=== PATIENT | female | born 1995 | race Caucasian/White ===

== ENCOUNTER 2018-03-21 02:00 | Emergency (ER) | payer OTHER ==
[~2018-03-21] VITALS: Ht 157.5 cm; Wt 92.5 kg
[~2018-03-21 02:00] MED LIST: BENADRYL25 MG PO; ZYRTEC10 M3 PO
== END 2018-03-21 09:14 | disposition home or self-care (01) ==
LOC: ER 02:00
DX: N21.1 Calculus in urethra (principal)

== ENCOUNTER 2019-02-13 11:45 | Emergency (ER) | payer OTHER ==
[~2019-02-13] VITALS: Ht 154.9 cm; Wt 95.3 kg
== END 2019-02-13 12:59 | disposition home or self-care (01) ==
LOC: ER 11:45
DX: R04.0 Epistaxis (principal)

== ENCOUNTER → 2019-10-10 | Emergency (ER) | payer OTHER ==
[~2019-10-10] VITALS: Ht 157.5 cm; Wt 93.9 kg
== END | disposition home or self-care (01) ==
LOC: ER 22:19
DX: L50.0 Allergic urticaria (principal)

== ENCOUNTER 2022-09-28 19:51 | Emergency (ER) | payer OTHER ==
[~2022-09-28] VITALS: Ht 157.5 cm; Wt 90.7 kg
== END 2022-09-29 01:20 | disposition home or self-care (01) ==
LOC: ER 19:51
DX: K52.9 Noninfective gastroenteritis and colitis, unspecified (principal)

== ENCOUNTER 2023-03-05 17:14 | Inpatient (IN) | payer OTHER ==
[~2023-03-05] VITALS: Ht 157.5 cm; Wt 89.4 kg
--- NOTE | 2023-03-05 17:27 | NUR ---
PACIENTE ALERTA Y ORIENTADA X3, REFIERE TENER DOLOR ABDOMINAL ,VOMITOS X2 Y NAUSEAS. SE MONITOREAN VS Y SE UBICA
--- NOTE | 2023-03-05 18:01 | NUR ---
SE EDUCA A PTE SOBRE TX MEDICO ESTA REFIERE ENTENDER, SE DANNY MUESTRAS DE LABORATORIO UTILIZANDO MEDIDAS ASEPTICA.S SE COLOCAN MEDICAMENTOS LOS CUALES TOLERA.
--- NOTE | 2023-03-05 23:53 | NUR ---
PACIENTE ALERTA Y OR IENTADA X3. SE ORIENTA SOBRE PROCEDIMIENTO A REALIZAR Y REFIRIO ENTENDER. SE REALIZA MUESTRAS DE LABORATORIO BAJO MEDIDAS ASEPTICAS. SE REALIZA EKG ORDENADO POR . SE MANTIENE BAJO OBSERVACION POR CAMBIOS SIGNIFICATIVOS EN JOE CON BARANDAS ELEVADAS.
--- NOTE | 2023-03-06 00:19 | NUR ---
PACIENTE ALERTA Y ORIENTADA X3. SE ORIENTA SOBRE TX A RECIBIR Y REFIRIO ENTENDER. SE ADMINISTRA MEDICAMENTO ORDENADO POR MD. SE CANALIZA EN MANO IZQUIERDA BAJO MEDIDAS ASEPTICAS.
== END 2023-03-09 20:37 | disposition home or self-care (01) | DRG 419 ==
LOC: ER 17:14 → SURG 03-06 01:07
PROVIDERS: Surgery; ADMIT Internal Medicine; ATTEND Internal Medicine
PROC: BW20ZZZ Computerized Tomography (CT Scan) of Abdomen (ICD-10-PCS; 2023-03-06)
PROC: [UNRECOGNIZED PROCEDURE] (2023-03-06)
PROC: BF53200 Other Imaging of Gallbladder and Bile Ducts using Fluorescing Agent, Indocyanine Green Dye, Intraoperative (ICD-10-PCS; 2023-03-08)
PROC: 0FT44ZZ Resection of Gallbladder, Percutaneous Endoscopic Approach (ICD-10-PCS; principal; 2023-03-08 09:00)
DX: K80.20 Calculus of gallbladder without cholecystitis without obstruction (principal); E80.6 Other disorders of bilirubin metabolism; K80.01 Calculus of gallbladder with acute cholecystitis with obstruction

== ENCOUNTER 2023-08-17 13:48 | Emergency (ER) | payer OTHER ==
[~2023-08-17] VITALS: Ht 157.5 cm; Wt 88.0 kg
[2023-08-17] MEDS ORDERED: DICLOFENAC SODI75 MG PO (15:21)
[2023-08-17] MEDS ORDERED: PEPCID AC20 MG PO (15:21)
== END 2023-08-17 15:27 | disposition home or self-care (01) ==
LOC: ER 13:48
DX: M94.0 Chondrocostal junction syndrome [Tietze] (principal); Z91.013 Allergy to seafood; Z88.2 Allergy status to sulfonamides

== ENCOUNTER 2023-11-01 08:22 | Emergency (ER) | payer OTHER ==
[~2023-11-01] VITALS: Ht 157.5 cm; Wt 88.0 kg
[~2023-11-01 08:22] MED LIST changes: +DICLOFENAC SODI75 MG PO; +PEPCID AC20 MG PO
[2023-11-01] MEDS ORDERED: KETOROLAC TROMETHAMINE 60 MG VIAL IM ONE (09:45)
[2023-11-01 09:57] LABS: HEMATOCRIT 40.1 % (36.0-45.00); HEMOGLOBIN 13.2 g/dL (12.0-15.00); MEAN CELL VOLUME 77.6 fL (80.00-100.00); MEAN CORPUSCULAR HEMOGLOBIN 25.6 pg (27.00-32.0); PLATELET COUNT 262 K/uL (150-450); RED BLOOD COUNT 5.17 M/uL (4.00-6.00); RED CELL DISTRIBUTION WIDTH 14.7 % (11.5-14.5)
== END 2023-11-01 15:01 | disposition home or self-care (01) ==
LOC: ER 08:22
PROVIDERS: General Practice
DX: G43.909 Migraine, unspecified, not intractable, without status migrainosus (principal); Z20.822 Contact with and (suspected) exposure to COVID-19

== ENCOUNTER 2023-11-10 12:10 | Emergency (ER) | payer OTHER ==
[~2023-11-10] VITALS: Ht 157.5 cm; Wt 88.5 kg
[2023-11-10 14:36] LABS: HEMATOCRIT 39.8 % (36.0-45.00); HEMOGLOBIN 13.2 g/dL (12.0-15.00); MEAN CELL VOLUME 78.3 fL (80.00-100.00); MEAN CORPUSCULAR HEMOGLOBIN 25.9 pg (27.00-32.0); PLATELET COUNT 280 K/uL (150-450); RED BLOOD COUNT 5.09 M/uL (4.00-6.00); RED CELL DISTRIBUTION WIDTH 14.6 % (11.5-14.5)
[2023-11-10 15:07] LABS: BILIRUBIN TOTAL 0.3 mg/dL (0.3-1.2); CALCIUM 9.6 mg/dL (8.5-10.1); CREATININE SERUM 0.66 mg/dL (0.55-1.02); GFR 106.64; GLOBULINA 4.1 G/DL (2.4-3.5); POTASSIUM 4.03 mEq/L (3.5-5.1); TOTAL PROTEIN 8.1 gm/dL (6.4-8.2)
== END 2023-11-10 18:09 | disposition home or self-care (01) ==
LOC: ER 12:10
PROVIDERS: General Practice
DX: R51.9 Headache, unspecified (principal); Z91.013 Allergy to seafood; Z88.8 Allergy status to other drugs, medicaments and biological substances; R03.0 Elevated blood-pressure reading, without diagnosis of hypertension

== ENCOUNTER 2024-05-07 07:02 | Emergency (ER) | payer OTHER ==
[~2024-05-07] VITALS: Ht 157.5 cm; Wt 72.1 kg
[2024-05-07 08:55] LABS: URINE APPEARANCE Clear; URINE BILIRRUBIN Negative (NEGATIVE); URINE BLOOD Trace; URINE COLOR Yellow; URINE GLUCOSE Negative (NEGATIVE); URINE KETONE Negative (NEGATIVE); URINE LEUKOCYTE Negative; URINE NITRATE Negative; URINE PROTEIN Negative (NEGATIVE); URINE UROBILINOGEN 0.2 E.U./dl
[2024-05-07 08:56] LABS: URINE EPITHELIAL CELLS 3.7 uL (0.0-38.8); URINE WBC 2.3 uL (0.0-23.2)
[2024-05-07 09:03] LABS: HEMATOCRIT 41.7 % (36.0-45.00); HEMOGLOBIN 13.9 g/dL (12.0-15.00); MEAN CELL VOLUME 82.7 fL (80.00-100.00); MEAN CORPUSCULAR HEMOGLOBIN 27.6 pg (27.00-32.0); MEAN CORPUSCULAR HGB CONC 33.3 g/dl (32.0-36.0); PLATELET COUNT 298 K/uL (150-450); RED BLOOD COUNT 5.04 M/uL (4.00-6.00); RED CELL DISTRIBUTION WIDTH 14.4 % (11.5-14.5)
[2024-05-07 09:53] LABS: CREATININE SERUM 0.67 mg/dL (0.55-1.02); GFR 104.8; POTASSIUM 3.84 mEq/L (3.5-5.1)
== END 2024-05-07 16:29 | disposition home or self-care (01) ==
LOC: ER 07:03
PROVIDERS: Emergency Medicine
DX: O20.9 Hemorrhage in early pregnancy, unspecified (principal); Z3A.01 Less than 8 weeks gestation of pregnancy; Z91.013 Allergy to seafood; Z88.8 Allergy status to other drugs, medicaments and biological substances

== ENCOUNTER 2024-10-15 08:45 | Outpatient (CLI) | payer OTHER | END 2024-10-15 08:48 | disposition home or self-care (01) | LOC: PRENATAL 08:45 | PROVIDERS: ATTEND Obstetrics & Gynecology Maternal & Fetal Medicine | DX: O36.80X0 Pregnancy with inconclusive fetal viability, not applicable or unspecified (principal); Z36.82 Encounter for antenatal screening for nuchal translucency; O34.219 Maternal care for unspecified type scar from previous cesarean delivery; Z14.8 Genetic carrier of other disease; Z3A.11 11 weeks gestation of pregnancy ==

== ENCOUNTER 2024-11-12 13:41 | Emergency (ER) | payer OTHER ==
[~2024-11-12] VITALS: Ht 157.5 cm; Wt 76.2 kg
[2024-11-12] MEDS ORDERED: ADULT ASPIRIN81 MG (13:56)
[2024-11-12] MEDS ORDERED: NASAL MIST126 ML (13:56)
[2024-11-12] MEDS ORDERED: CETIRIZINE HCL 5 MG/5 ML ML PO ONE (15:45)
[2024-11-12] MEDS ORDERED: GUAIFENESIN/DEXTROMETHORPHAN 100MG/10ML BLIST.PACK PO ONE (15:45)
[2024-11-12 16:41] LABS: HEMATOCRIT 35.5 % (36.0-45.00); HEMOGLOBIN 12.3 g/dL (12.0-15.00); MEAN CORPUSCULAR HEMOGLOBIN 28.7 pg (27.00-32.0); MEAN CORPUSCULAR HGB CONC 34.6 g/dl (32.0-36.0); PLATELET COUNT 221 K/uL (150-450); RED BLOOD COUNT 4.28 M/uL (4.00-6.00); RED CELL DISTRIBUTION WIDTH 13.8 % (11.5-14.5)
[2024-11-12] MEDS ORDERED: QC TUSSIN DM L118 ML PO (18:24)
[2024-11-12] MEDS ORDERED: ZYRTEC10 MG PO (18:24)
== END 2024-11-12 18:59 | disposition home or self-care (01) ==
LOC: ER 13:43
PROVIDERS: General Practice
DX: O98.512 Other viral diseases complicating pregnancy, second trimester (principal); U07.1 COVID-19; Z3A.16 16 weeks gestation of pregnancy; J00 Acute nasopharyngitis [common cold]; Z88.8 Allergy status to other drugs, medicaments and biological substances; Z91.013 Allergy to seafood

== ENCOUNTER → 2024-12-17 08:00 | Outpatient (CLI) | payer OTHER ==
[~2024-12-17 08:00] MED LIST changes: +ADULT ASPIRIN81 MG; +NASAL MIST126 ML; +QC TUSSIN DM L118 ML PO; +ZYRTEC10 MG PO
== END | disposition home or self-care (01) ==
LOC: PRENATAL 08:00
PROVIDERS: ATTEND Obstetrics & Gynecology Maternal & Fetal Medicine
DX: O44.00 Complete placenta previa NOS or without hemorrhage, unspecified trimester (principal); O34.219 Maternal care for unspecified type scar from previous cesarean delivery; Z3A.20 20 weeks gestation of pregnancy

== ENCOUNTER → 2025-02-06 08:39 | Outpatient (CLI) | payer OTHER | END | disposition home or self-care (01) | LOC: PRENATAL 08:39 | PROVIDERS: ATTEND Obstetrics & Gynecology Maternal & Fetal Medicine | DX: O26.849 Uterine size-date discrepancy, unspecified trimester (principal); O36.8199 Decreased fetal movements, unspecified trimester, other fetus; O34.219 Maternal care for unspecified type scar from previous cesarean delivery; Z3A.28 28 weeks gestation of pregnancy ==

== ENCOUNTER 2025-03-18 09:31 | Outpatient (CLI) | payer OTHER | END 2025-03-18 09:32 | disposition home or self-care (01) | LOC: PRENATAL 09:31 | PROVIDERS: ATTEND Obstetrics & Gynecology | DX: O26.849 Uterine size-date discrepancy, unspecified trimester (principal); O36.8199 Decreased fetal movements, unspecified trimester, other fetus; O34.219 Maternal care for unspecified type scar from previous cesarean delivery; Z3A.34 34 weeks gestation of pregnancy ==

== ENCOUNTER 2025-04-17 10:15 | Inpatient (IN) | payer OTHER ==
[~2025-04-17] VITALS: Ht 157.5 cm; Wt 92.5 kg
[2025-04-17 13:56] LABS: RH POSITIVE
[2025-04-17] MEDS ORDERED: PRENATABS RX T1 EACH PO (13:56)
[2025-04-22 13:06] VITALS: BP 137/81
[2025-04-22] MEDS ORDERED: ERYTHROMYCIN BASE OPHT 1GM EACH TUBE OP ONE (19:00)
[2025-04-22] MEDS ORDERED: CEFAZOLIN SODIUM 1,000 MG VIAL IV ONE (19:00)
[2025-04-22] MEDS ORDERED: OXYTOCIN 10 UNITS/ML VIAL IV ONE (19:00)
[2025-04-22] MEDS ORDERED: ONDANSETRON HCL 2 MG/ML VIAL IV PRN (19:15)
[2025-04-22] MEDS ORDERED: MORPHINE SULFATE 4 MG/ML CARTRIDGE IV PRN (19:15)
[2025-04-22] MEDS ORDERED: KETOROLAC TROMETHAMINE 30 MG VIAL IV SCH (19:30)
[2025-04-22] MEDS ORDERED: MORPHINE SULFATE 4 MG/ML VIAL IV ONE ×2 (19:55→21:00)
[2025-04-22] MEDS ORDERED: SIMETHICONE 125 MG CAPSULE PO SCH (21:00)
[2025-04-22] MEDS ORDERED: OXYTOCIN 1,000 ML IV SCH (21:30)
[2025-04-22] MEDS ORDERED: RINGERS SOLUTION,LACTATED 1,000 ML IV SCH (21:30)
[2025-04-22 22:30] VITALS: BP 138/76
[2025-04-23 00:05] VITALS: BP 145/64
[2025-04-23] MEDS ORDERED: ACETAMINOPHEN 500 MG GEL..CAP PO SCH (06:00)
[2025-04-23] MEDS ORDERED: ACETAMINOPHEN 325 MG TABLET PO SCH (06:00)
[2025-04-23 06:52] LABS: BASO % 0.2 % (0.1-1.2); EOS # 0.05 (0.04-0.54); EOS % 0.6 % (0.7-7.0); LYMPH # 0.90 (1.18-3.74); LYMPH % 10.2 % (19.3-53.1); MEAN PLATELET VOLUME 11.70 fl (9.4-12.4); MONO # 0.59 (0.24-0.82); MONO % 6.7 % (4.7-12.5); NEUT # 7.21 (1.56-6.13); NEUT % 82.1 % (34.0-71.1); RED CELL DISTRIBUTION WIDTH 13.2 % (11.6-14.4)
[2025-04-23 08:24] VITALS: BP 107/60
[2025-04-23] MEDS ORDERED: DOCUSATE SODIUM 100MG CAP PO SCH (09:00)
[2025-04-23 13:23] VITALS: BP 128/78
[2025-04-23 16:59] VITALS: BP 115/68
[2025-04-23 20:29] VITALS: BP 133/78
[2025-04-24 00:10] VITALS: BP 141/74
[2025-04-24 08:00] VITALS: BP 126/80
[2025-04-24 18:51] VITALS: BP 130/79
[2025-04-25] VITALS: BP 132/85
[2025-04-25] MEDS ORDERED: IBU800 MG PO (07:54)
[2025-04-25] MEDS ORDERED: SIMETHICONE125 M1 PO (07:55)
[2025-04-25] MEDS ORDERED: COLACE100 MG PO (07:55)
[2025-04-25 08:29] VITALS: BP 132/81
== END 2025-04-25 14:02 | disposition home or self-care (01) | DRG 785 ==
LOC: O/R 04-22 10:23 → OB/GYN 04-22 10:23
PROVIDERS: ADMIT Obstetrics & Gynecology; ATTEND Obstetrics & Gynecology
PROC: 0UB70ZZ Excision of Bilateral Fallopian Tubes, Open Approach (ICD-10-PCS; 2025-04-22)
PROC: 4A1HXCZ Monitoring of Products of Conception, Cardiac Rate, External Approach (ICD-10-PCS; 2025-04-22)
PROC: 10D00Z1 Extraction of Products of Conception, Low, Open Approach (ICD-10-PCS; principal; 2025-04-22 17:00)
DX: O34.211 Maternal care for low transverse scar from previous cesarean delivery (principal); Z30.2 Encounter for sterilization; Z3A.39 39 weeks gestation of pregnancy; Z37.0 Single live birth